=== PATIENT | female | born 1995 | race Caucasian/White ===

== ENCOUNTER 2020-01-17 23:07 | Emergency (ER) | payer OTHER ==
[~2020-01-17] VITALS: Ht 170.2 cm; Wt 141.0 kg
--- NOTE | 2020-01-18 00:04 | PHYS DOC ---
General Adult EDM: Chief Complaint: VAGINAL BLEEDING HPI: HPI: Patient is a 24-year-old female who is G3A1P1 presented with pelvic cramping and vaginal spotting since yesterday. Her last menstrual period on December 06, 2019. Patient did home test and came back positive. She claimed that she has been spotting off an on since yesterday associated with some cramping, NO ACTIVE BLEEDING TO DAY. Review of Systems: Review of Systems: Constitutional: Denies fever or chills Eyes: Denies change in visual acuity HENT: Denies nasal congestion or sore throat Respiratory: Denies cough or shortness of breath Cardiovascular: Denies chest pain or edema GI: Denies abdominal pain, nausea, vomiting, bloody stools or diarrhea : Denies dysuria Musculoskeletal: Denies back pain or joint pain Integument: Denies rash Neurologic: Denies headache, focal weakness or sensory changes Endocrine: Denies polyuria or polydipsia Lymphatic: Denies swollen glands Psychiatric: Denies depression or anxiety Heart Score: Risk Factors: Risk Factors: DM, Current or recent (<one month) smoker, HTN, HLP, family history of CAD, obesity. Risk Scores: Score 0 - 3: 2.5% MACE over next 6 weeks - Discharge Home Score 4 - 6: 20.3% MACE over next 6 weeks - Admit for Clinical Observation Score 7 - 10: 72.7% MACE over next 6 weeks - Early Invasive Strategies Physical Exam: PE: Constitutional: Well developed, well nourished, no acute distress, non-toxic appearance. [] HENT: Normocephalic, atraumatic, bilateral external ears normal, oropharynx moist, no oral exudates, nose normal. [] Eyes: PERRLA, EOMI, conjunctiva normal, no discharge. [] Neck: Normal range of motion, no tenderness, supple, no stridor. [] Cardiovascular:Heart rate regular rhythm, no murmur [] Lungs & Thorax: Bilateral breath sounds clear to auscultation [] Abdomen: Bowel sounds normal, soft, no tenderness, no masses, no pulsatile masses. [] Skin: Warm, dry, no erythema, no rash. [] Back: No tenderness, no CVA tenderness. [] Extremities: No tenderness, no cyanosis, no clubbing, ROM intact, no edema. [] Neurologic: Alert and oriented X 3, normal motor function, normal sensory function, no focal deficits noted. [] Psychologic: Affect normal, judgement normal, mood normal. [] Current Patient Data: Labs: Laboratory Tests Test 01/17/20 23:56 POC Urine HCG, Qualitative hcg positive (Negative) EKG: EKG: [] Radiology/Procedures: Radiology/Procedures: [][place] [id number] IMAGING REPORT Signed PATIENT: JANAY DELANEY ACCOUNT: [id number] : 1995 LOCATION: ER AGE: 24 SEX: F EXAM STATUS: REG ER ORD. PHYSICIAN: YAA MANN DO REASON: , pelvic pain, vaginal bleeding, LMP 12/06/19 PROCEDURE: TRANSVAGINAL Obstetric ultrasound less than 14 weeks: Reason for examination: with pelvic pain and vaginal bleeding. Last menstrual period 12/06/2019. Transvaginal ultrasound examination of the pelvis was performed. Uterus measures 7.7 x 4.1 x 3.6 cm in greatest dimension without a focal lesion seen. A small nabothian cyst is seen in the cervix measuring 4.2 mm in size. Endometrium is not abnormally thickened at 6.8 mm. There is no evidence of intrauterine or ectopic gestation. The right ovary measures 3.3 x 2.0 x 1.9 cm in greatest dimension and shows normal vascular flow. The left ovary measures 3.5 x 2.6 x 2.2 cm in greatest dimension and shows normal vascular flow. There is however a 2.7 x 2.1 cm left ovarian cyst present. There is a trace of fluid in the cervix. IMPRESSION: No evidence of intrauterine or ectopic gestation. 2.7 cm cyst in the left ovary. Electronically signed by: Santa Hernandez MD (01/18/2020 1:40 AM) [facility] DICTATED AND SIGNED BY: SANTA HERNANDEZ MD DATE: 01/18/20139 CC: PCP,UNKNOWN; YAA MANN DO ~ Course & Med Decision Making: Course & Med Decision Making Pertinent Labs and Imaging studies reviewed. (See chart for details) Patient pulled up her medical record from [facility] and her blood type is A POSITIVE. Patient already saw the result of her pelvic ultrasound so she declined blood work at this time. She will follow up with her OB.PROPERTY INSURANCE AGENT DOCTOR THIS WEEK. Milagro Disclaimer: Milagro Disclaimer: This electronic medical record was generated, in whole or in part, using a voice recognition dictation system. Departure Departure: Impression: Primary Impression: Threatened in first trimester Disposition: HOME/RESIDENCE PRIOR TO ADM Condition: STABLE Referrals: PCP,UNKNOWN (PCP) PLEASE FOLLOW UP WITH YOUR SOFTWARE LEAD DOCTOR THIS WEEK FOR REEVALUATION. Patient Instructions: Threatened Miscarriage Additional Instructions: Thank you for visiting our Emergency Department. We appreciate you trusting us with your care. If any additional problems come up don't hesitate to return to visit us. Please follow up with your primary care provider so they can plan additional care if needed and know about the problem that you had. If symptoms worsen come back to the Emergency Department. Any concerning symptoms that start such as chest pain, shortness of air, weakness or numbness on one side of the body, running high fevers or any other concerning symptoms return to the ER. Justification of Admission: Justification of Admission: Justification of Admission Dx: N/A YAA MANN DO Jan 18, 2020 00:04
[2020-01-18 01:12] LABS: BACTERIA,URINE FEW /HPF (0-FEW); BILIRUBIN,URINE NEG (NEG); CLARITY,URINE HAZY; COLOR,URINE YELLOW; GLUCOSE,URINE NEG (NEG); NITRITE,URINE NEG (NEG); RBC,URINE >40 /HPF (0-2); UROBILINOGEN,URINE 0.2 mg/dL (0.2 mg/dL)
[2020-01-18 01:13] LABS: SQUAMOUS EPITHELIAL CELL,UR FEW /LPF
[2020-01-18 01:18] VITALS: BP 131/88
--- NOTE | 2020-01-18 01:43 | RAD ---
Obstetric ultrasound less than 14 weeks: Reason for examination: with pelvic pain and vaginal bleeding. Last menstrual period 12/06/2019. Transvaginal ultrasound examination of the pelvis was performed. Uterus measures 7.7 x 4.1 x 3.6 cm in greatest dimension without a focal lesion seen. A small nabothian cyst is seen in the cervix measuring 4.2 mm in size. Endometrium is not abnormally thickened at 6.8 mm. There is no evidence of intrauterine or ectopic gestation. The right ovary measures 3.3 x 2.0 x 1.9 cm in greatest dimension and shows normal vascular flow. The left ovary measures 3.5 x 2.6 x 2.2 cm in greatest dimension and shows normal vascular flow. There is however a 2.7 x 2.1 cm left ovarian cyst present. There is a trace of fluid in the cervix. IMPRESSION: No evidence of intrauterine or ectopic gestation. 2.7 cm cyst in the left ovary. Electronically signed by: Santa Hernandez MD (01/18/2020 1:40 AM) [facility]
== END 2020-01-18 01:30 | disposition home or self-care (01) ==
LOC: ER 23:07
DX: O20.0 Threatened abortion (principal); Z3A.01 Less than 8 weeks gestation of pregnancy
CPT/HCPCS: 76817; 81001; 81025; 87086; 99284

== ENCOUNTER 2020-02-03 13:02 | Emergency (ER) | payer OTHER ==
[~2020-02-03] VITALS: Ht 170.2 cm; Wt 141.0 kg
--- NOTE | 2020-02-03 13:36 | EKG ---
[address] [address] Test Date: 2020-02-03 Test Time: 13:19:58 Pat Name: JANAY DELANEY Department: Room: Gender: F [employer] Consultant: : 1995 Requested By: CHILO LAY Order Number: [id number] Reading MD: Measurements Intervals [place] Rate: 89 P: 47 [place]: 168 QRS: 34 QRSD: 80 T: 35 QT: 338 QTc: 412 Interpretive Statements SINUS RHYTHM R-S TRANSITION ZONE IN V LEADS DISPLACED TO THE RIGHT OTHERWISE NORMAL ECG RI6.02 No previous ECG available for comparison
--- NOTE | 2020-02-03 13:43 | RAD ---
CHEST PA LATERAL History: Chest pain Comparison: None. Findings: 2 views of the chest are submitted. There is no lobar infiltrate, pneumothorax, or effusion. Pericardial cardiac silhouette is within normal limits in size. There may be due to degree of perihilar bronchial wall thickening. Impression: 1. There may be degree of perihilar bronchial wall thickening, no significant lobar infiltrate. Electronically signed by: Eleno Cazares MD (02/03/2020 1:41 PM) [facility]
[2020-02-03 13:45] VITALS: BP 131/88
--- NOTE | 2020-02-03 13:52 | PHYS DOC ---
Past History Past Medical History: No Pertinent History Past Surgical History: , Other Additional Past Surgical Histo: d&c Alcohol Use: None General Adult EDM: Chief Complaint: CHEST PAIN HPI: HPI: Patient is a [age] year old [sex] who presents with [] Review of Systems: Review of Systems: Constitutional: Denies fever or chills Eyes: Denies change in visual acuity HENT: Denies nasal congestion or sore throat Respiratory: Denies cough or shortness of breath Cardiovascular: Denies chest pain or edema GI: Denies abdominal pain, nausea, vomiting, bloody stools or diarrhea : Denies dysuria Musculoskeletal: Denies back pain or joint pain Integument: Denies rash Neurologic: Denies headache, focal weakness or sensory changes Endocrine: Denies polyuria or polydipsia Lymphatic: Denies swollen glands Psychiatric: Denies depression or anxiety Heart Score: Risk Factors: Risk Factors: DM, Current or recent (<one month) smoker, HTN, HLP, family history of CAD, obesity. Risk Scores: Score 0 - 3: 2.5% MACE over next 6 weeks - Discharge Home Score 4 - 6: 20.3% MACE over next 6 weeks - Admit for Clinical Observation Score 7 - 10: 72.7% MACE over next 6 weeks - Early Invasive Strategies Allergies: Allergies: Allergies Coded Allergies Type Severity Reaction Last Updated Verified No Known Drug Allergies 01/18/20 No Physical Exam: PE: Constitutional: Well developed, well nourished, no acute distress, non-toxic appearance. [] HENT: Normocephalic, atraumatic, bilateral external ears normal, oropharynx moist, no oral exudates, nose normal. [] Eyes: PERRLA, EOMI, conjunctiva normal, no discharge. [] Neck: Normal range of motion, no tenderness, supple, no stridor. [] Cardiovascular:Heart rate regular rhythm, no murmur [] Lungs & Thorax: Bilateral breath sounds clear to auscultation [] Abdomen: Bowel sounds normal, soft, no tenderness, no masses, no pulsatile masses. [] Skin: Warm, dry, no erythema, no rash. [] Back: No tenderness, no CVA tenderness. [] Extremities: No tenderness, no cyanosis, no clubbing, ROM intact, no edema. [] Neurologic: Alert and oriented X 3, normal motor function, normal sensory function, no focal deficits noted. [] Psychologic: Affect normal, judgement normal, mood normal. [] Current Patient Data: Vital Signs: Vital Signs Date Time Temp Pulse Resp B/P (MAP) Pulse Ox O2 Delivery O2 Flow Rate FiO2 02/03/20 13:45 97.9 113 24 131/88 (102) 94 EKG: EKG: @1319 NSR at 89bpm, NO ST elevation, QRS 80ms, QT/QTc 338/412ms Radiology/Procedures: Radiology/Procedures: PROCEDURE: CHEST PA & LATERAL CHEST PA LATERAL History: Chest pain Comparison: None. Findings: 2 views of the chest are submitted. There is no lobar infiltrate, pneumothorax, or effusion. Pericardial cardiac silhouette is within normal limits in size. There may be due to degree of perihilar bronchial wall thickening. Impression: 1. There may be degree of perihilar bronchial wall thickening, no significant lobar infiltrate. Electronically signed by: Eleno Cazares MD (02/03/2020 1:41 PM) [facility] Course & Med Decision Making: Course & Med Decision Making Pertinent Labs and Imaging studies reviewed. (See chart for details) [] Dragon Disclaimer: Dragon Disclaimer: This electronic medical record was generated, in whole or in part, using a voice recognition dictation system. Departure Departure: Impression: Primary Impression: Atypical chest pain Disposition: 01 DC HOME SELF CARE/HOMELESS Condition: STABLE Referrals: SKYLAR ANDERSON MD (PCP) Patient Instructions: Chest Pain (Nonspecific), Rrhj-[id number], Gastritis, Adult, Yoyy-jz-Rlhn Scripts Famotidine (PEPCID) 20 Mg Tablet 1 TAB PO BID for Gastritis, #20 TAB Prov: CHILO LAY DO 02/03/20 CHIOL LAY DO Feb 03, 2020 13:52
[2020-02-03] MEDS ORDERED: FAMO-63 PO (14:00)
== END 2020-02-03 14:06 | disposition home or self-care (01) ==
LOC: ER 13:02
DX: R07.2 Precordial pain (principal)
CPT/HCPCS: 71046; 93005; 99283

== ENCOUNTER 2020-05-04 22:23 | Emergency (ER) | payer OTHER ==
[~2020-05-04] VITALS: Ht 170.2 cm; Wt 145.0 kg
[~2020-05-04 22:23] MED LIST: FAMO-63 PO
--- NOTE | 2020-05-04 22:50 | PHYS DOC ---
Past History Past Medical History: Other Additional Past Medical Histor: BORDERLINE ANEMIA Past Surgical History: , Other Additional Past Surgical Histo: d&c Smoking: Non-smoker Alcohol Use: None Drug Use: None Adult General Chief Complaint Chief Complaint: NAUSEA/VOMITING/DIARRHEA [facility] Patient is an otherwise healthy 24-year-old female who presents with nausea and vomiting. States they were getting ready to go to sleep, and she went to go to the restroom before bed and had to large watery nonbloody diarrhea episodes. States she had very mild nausea with this and did not have any emesis. States this started just before coming to the ED. Denies any recent travel, illnesses, fevers, Covid/flu symptoms, chest pain, shortness of breath, abdominal pain, dys uria, hematuria or blood in the stool. States that since she had that second episode she is actually felt better. States that here in the ED, the nausea had almost resolved because she took a Dramamine at home. Review of Systems Review of Systems Review of systems otherwise normal outside of [facility] Allergies Allergies Allergies Coded Allergies Type Severity Reaction Last Updated Verified No Known Drug Allergies 01/18/20 No Physical Exam Physical Exam Constitutional: Well developed, well nourished, no acute distress, non-toxic appearance. [] HENT: Normocephalic, atraumatic, bilateral external ears normal, oropharynx moist, no oral exudates, nose normal. [] Eyes: PERRLA, EOMI, conjunctiva normal, no discharge. [] Neck: Normal range of motion, no tenderness, supple, no stridor. [] Cardiovascular: Intermittent tachycardia to approximately 105, but when patient calms down she is in the upper 80s and low 90s. Lungs & Thorax: Bilateral breath sounds clear to auscultation [] Abdomen: Bowel sounds normal, soft, no tenderness, no masses, no pulsatile masses. [] Skin: Warm, dry, no erythema, no rash with capillary refill approximately 3 seconds. [] Back: No tenderness, ] Extremities: No tenderness, no cyanosis, no clubbing, ROM intact, no edema. [] Neurologic: Alert and oriented X 3, normal motor function, normal sensory function, no focal deficits noted. [] Psychologic: Cooperative and pleasant but anxious Current Patient Data Vital Signs Vital Signs Date Time Temp Pulse Resp B/P (MAP) Pulse Ox O2 Delivery O2 Flow Rate FiO2 05/04/20 22:23 99.1 105 18 147/74 (98) 98 Room Air EKG EKG [] Radiology/Procedures Radiology/Procedures [] Heart Score Risk Factors: Risk Factors: DM, Current or recent (<one month) smoker, HTN, HLP, family history of CAD, obesity. Risk Scores: Risk Factors: DM, Current or recent (<one month) smoker, HTN, HLP, family history of CAD, obesity. Course & Med Decision Making Course & Med Decision Making Patient is a 24-year-old female who presents with 2 episodes of watery diarrhea and mild nausea Vital signs notable for tachycardia. Physical exam noted above. Patient given Zofran. Discussed the need for laboratory analysis and IV fluid. Patient stated that she was feeling much better and thinks that just the Zofran and the ability to drink plenty of fluids would be okay and politely declined any work- up. Did request a work note for her so he could stay home from work [employer], who works at the care home to help take care of the kids while she was not feeling well. Advised that a work-up would help ensure that she did not have anything else going on besides the diarrhea but since she was otherwise feeling well and felt safe to discharge home this would be okay. Advised to come back to the emergency department immediately with any new or concerning symptoms and follow-up with her primary care physician first thing in the morning to update on her ED visit. Patient was grateful, verbalized understanding and agreed with plan of discharge. [] Dragon Disclaimer Dragon Disclaimer This electronic medical record was generated, in whole or in part, using a voice recognition dictation system. Departure Departure: Impression: Primary Impression: Diarrhea Disposition: 01 DC HOME SELF CARE/HOMELESS Condition: IMPROVED Referrals: PCP,UNKNOWN (PCP) Patient Instructions: Diarrhea, Elcg-ev-Vurr, Nausea, Adult Scripts Ondansetron Hcl (ZOFRAN) 4 Mg Tablet 1 TAB PO PRN Q6HRS PRN for NAUSEA, #6 TAB Prov: NAHOMI VENTURA MD 05/04/20 NAHOMI VENTURA MD May 04, 2020 22:50
[2020-05-04] MEDS ORDERED: IV RINGERS SOLUTION,LACTATED 1,000 ML IV ONE (23:00)
[2020-05-04] MEDS ORDERED: ONDANSETRON ODT 4 MG TAB.RAPDIS PO ONE (23:00)
[2020-05-04 23:05] VITALS: BP 123/88
[2020-05-04] MEDS ORDERED: ONDA4TAB7 PO (23:22)
== END 2020-05-04 23:30 | disposition home or self-care (01) ==
LOC: ER 22:23
DX: R19.7 Diarrhea, unspecified (principal); R11.2 Nausea with vomiting, unspecified
CPT/HCPCS: 81025; 99283; Q0162

== ENCOUNTER 2020-05-09 21:06 | Emergency (ER) | payer OTHER ==
[~2020-05-09 21:06] MED LIST changes: +ONDA4TAB7 PO
[2020-05-09] MEDS ORDERED: ONDA4TAB12 PO (21:55)
--- NOTE | 2020-05-09 21:56 | PHYS DOC ---
Past History Past Medical History: Other Additional Past Medical Histor: BORDERLINE ANEMIA Past Surgical History: , Other Additional Past Surgical Histo: d&c Smoking: Non-smoker Alcohol Use: None Drug Use: None General Adult EDM: Chief Complaint: DIARRHEA HPI: HPI: Patient is a 24-year-old female who presents with nausea and diarrhea. Patient states that she was here 4 days ago for the same symptoms and now she is out of Zofran. Patient states that she has had issues with chronic nausea and diarrhea since she had her son 4 years ago. Patient states that she takes Zofran or Dramamine at home which usually received relieve symptoms. Patient denies fever, abdominal pain, blood in stool. Denies recent history of illness or antibiotics. Patient states that she will follow-up with her primary care tomorrow and get a referral for GI. Review of Systems: Review of Systems: Constitutional: Denies fever or chills Eyes: Denies change in visual acuity HENT: Denies nasal congestion or sore throat Respiratory: Denies cough or shortness of breath Cardiovascular: Denies chest pain or edema GI: Denies abdominal pain, reports nausea and diarrhea : Denies dysuria Musculoskeletal: Denies back pain or joint pain Integument: Denies rash Neurologic: Denies headache, focal weakness or sensory changes Endocrine: Denies polyuria or polydipsia Lymphatic: Denies swollen glands Psychiatric: Denies depression or anxiety Allergies: Allergies: Allergies Coded Allergies Type Severity Reaction Last Updated Verified No Known Drug Allergies 01/18/20 No Physical Exam: PE: Constitutional: Well developed, well nourished, no acute distress, non-toxic appearance. [] HENT: Normocephalic, atraumatic, bilateral external ears normal, oropharynx moist, no oral exudates, nose normal. [] Eyes: PERRLA, EOMI, conjunctiva normal, no discharge. [] Neck: Normal range of motion, no tenderness, supple, no stridor. [] Cardiovascular:Heart rate regular rhythm, no murmur [] Lungs & Thorax: Bilateral breath sounds clear to auscultation [] Abdomen: Bowel sounds normal, soft, no tenderness, no masses, no pulsatile masses. [] Skin: Warm, dry, no erythema, no rash. [] Back: No tenderness, no CVA tenderness. [] Extremities: No tenderness, no cyanosis, no clubbing, ROM intact, no edema. [] Neurologic: Alert and oriented X 3, normal motor function, normal sensory function, no focal deficits noted. [] Psychologic: Affect normal, judgement normal, mood normal. [] EKG: EKG: [] Radiology/Procedures: Radiology/Procedures: [] Heart Score: Risk Factors: Risk Factors: DM, Current or recent (<one month) smoker, HTN, HLP, family history of CAD, obesity. Risk Scores: Score 0 - 3: 2.5% MACE over next 6 weeks - Discharge Home Score 4 - 6: 20.3% MACE over next 6 weeks - Admit for Clinical Observation Score 7 - 10: 72.7% MACE over next 6 weeks - Early Invasive Strategies Course & Med Decision Making: Course & Med Decision Making Pertinent Labs and Imaging studies reviewed. (See chart for details) []Patient is a 24-year-old female who presents with nausea and diarrhea. Patient states that she was here 4 days ago for the same symptoms and now she is out of Zofran. Patient states that she has had issues with chronic nausea and diarrhea since she had her son 4 years ago. Patient states that she takes Zofran or Dramamine at home which usually received relieve symptoms. Patient denies fever, denies recent history of illness or antibiotics. Patient states that she will follow-up with her primary care tomorrow and get a referral for GI. Patient was seen here 4 days ago for same symptoms. Patient states that this has been going on since her son was born 4 years ago. Patient denies seeing a specialist or her primary care physician for this problem. Patient is able to eat and drink without vomiting. Patient is hemodynamically stable. Denies blood in her stool or abdominal pain. Zofran given in the emergency room and prescription given to patient. Patient is requesting a work note for her so that he can stay home tonight and take care of her. Informed patient that we will not be able to write work notes for her in the future without seeing him as a patient. Patient needs to follow-up with her primary care regarding this issue. This is a chronic problem that needs to be seen by a GI doctor. Milagro Disclaimer: Milagro Disclaimer: This electronic medical record was generated, in whole or in part, using a voice recognition dictation system. Departure Departure: Impression: Primary Impression: Nausea Disposition: 01 DC HOME SELF CARE/HOMELESS Condition: GOOD Referrals: PCP,UNKNOWN (PCP) Patient Instructions: Nausea, Adult, [id number] Additional Instructions: You are seen the emergency room tonight for nausea and diarrhea. I have given you a prescription for Zofran to take at home. Please follow-up with Shakira tomorrow so that you can get a referral for a GI consult. EMERGENCY DEPARTMENT GENERAL DISCHARGE INSTRUCTIONS Thank you for coming to [facility] (ED) today and trusting us with you care. We trust that you had a positivie experience in our Emergency Department. If you wish to speak to the department management, you may call the director at [phone]. YOUR FOLLOW UP INSTRUCTIONS ARE FOLLOWS: 1. Do you have a private Doctor? If you do not have a private doctor, please ask for a resource list of physicians or clinics that may be able to assist you with follow up care. 2. The Emergency Physician has interpreted your x-rays. The X-Ray specialist will also review them. If there is a change in the findings, you will be notified in 48 hours when at all possible. 3. A lab test or culture has been done, your results will be reviewed and you will be notified if you need a change in treatment. ADDITIONAL INSTRUCTIONS AND INFORMATION: 1. Your care today has been supervised by a physician who is specially trained in emergency care. Many problems require more than one evaluation for a complete diagnosis and treatment. We recommend that you schedule your follow up appointment as recommended to ensure complete treatment of you illness or injury. If you are unable to obtain follow up care and continue to have a problem, or if your condition worsens, we recommend that you return to the ED. 2. We are not able to safely determine your condition over the phone nor are we able to give sound medical advice over the phone. For these safety reasons, if you call for medical advice we will ask you to come to the ED for further evaluation. 3. If you have any questions regarding these discharge instructions please call the ED at [phone]. SAFETY INFORMATION: In the interest of safety, wellness, and injury prevention; we encourage you to wear your sealbelt, if you smoke; quite smoking, and we encourage family to use a protective helmet for bicycling and other sporting events that present an increased risk for head injury. IF YOUR SYMPTOMS WORSEN OR NEW SYMPTOMS DEVELOP, OR YOU HAVE CONCERNS ABOUT YOUR CONDITION; OR IF YOUR CONDITION WORSENS WHILE YOU ARE WAITING FOR YOUR FOLLOW UP APPOINTMENT; EITHER CONTACT YOUR PRIMARY CARE DOCTOR, THE PHYSICIAN WHOSE NAME AND NUMBER YOU WERE GIVEN, OR RETURN TO THE ED IMMEDIATELY. Scripts Ondansetron (ONDANSETRON ODT) 4 Mg Tab.rapdis 4 MG PO TID PRN for NAUSEA/VOMITING MDD 24mg for 3 Days, #9 TAB Prov: SHAYLA FRANK APRN 05/09/20 SHAYLA FRANK APRN May 09, 2020 21:56
[2020-05-09] MEDS ORDERED: ONDANSETRON ODT 4 MG TAB.RAPDIS PO ONE (22:00)
== END 2020-05-09 22:20 | disposition home or self-care (01) ==
LOC: ER 21:06
DX: R11.0 Nausea (principal); R19.7 Diarrhea, unspecified; Z86.2 Personal history of diseases of the blood and blood-forming organs and certain disorders involving the immune mechanism; Z98.890 Other specified postprocedural states
CPT/HCPCS: 81025; 99283; Q0162

== ENCOUNTER 2021-09-16 17:54 | Emergency (ER) | payer OTHER ==
[~2021-09-16] VITALS: Ht 170.2 cm; Wt 145.3 kg
[~2021-09-16 17:54] MED LIST changes: +ONDA4TAB12 PO
[2021-09-16 18:30] VITALS: BP 132/74
[2021-09-16 19:13] LABS: BACTERIA,URINE 0 /HPF (0-FEW); CLARITY,URINE CLEAR; COLOR,URINE YELLOW; GLUCOSE,URINE NEG (NEG); NITRITE,URINE NEG (NEG); RBC,URINE 0 /HPF (0-2); SQUAMOUS EPITHELIAL CELL,UR MANY /LPF; UROBILINOGEN,URINE 0.2 mg/dL (0.2 mg/dL); WBC,URINE 0 /HPF (0-4)
--- NOTE | 2021-09-16 20:03 | PHYS DOC ---
Past History Past Medical History: Other Additional Past Medical Histor: BORDERLINE ANEMIA (MIRNA ROWLEY APRN) Past Surgical History: , Other Additional Past Surgical Histo: D&C (MIRNA ROWLEY APRN) Smoking: Non-smoker Alcohol Use: None Drug Use: None (MIRNA ROWLEY APRN) Adult General Chief Complaint Chief Complaint: SHOULDER INJURY HPI HPI Patient is a 26 year old female patient who presents with left shoulder pain for the past couple days. states no history of trauma, States she feels she needs an MRI. Also reports she feels she might be but was not able to understand the test at home. SHe denies any paresthesia, denies any decreased ROM. STates she just woke this morning with the discomfort in her arm. She reports she has had discomfort from sleeping on her arm in the past, however reports she does not sleep on her left side. (MIRNA ROWLEY APRN) Review of Systems Review of Systems Constitutional: Denies fever or chills [] Respiratory: Denies cough or shortness of breath [] Cardiovascular: No additional information not addressed in HPI [] GI: Denies abdominal pain, nausea, vomiting, bloody stools or diarrhea [] : Denies dysuria or hematuria [] Musculoskeletal: Denies back pain. Reports left shoulder and upper arm pain Integument: Denies rash or skin lesions [] Neurologic: Denies headache, focal weakness or sensory changes [] All other systems were reviewed and found to be within normal limits, except as documented in this note. (MIRNA ROWLEY APRN) Allergies Allergies Allergies Coded Allergies Type Severity Reaction Last Updated Verified No Known Drug Allergies 01/18/20 No (MIRNA ROWLEY APRN) Physical Exam Physical Exam Constitutional: Well developed, well nourished, no acute distress, non-toxic appearance. [] HENT: Normocephalic, atraumatic, bilateral external ears normal, oropharynx moist, no oral exudates, nose normal. [] Eyes: PERRLA, EOMI, conjunctiva normal, no discharge. [] Neck: Normal range of motion, no tenderness, supple, no stridor. [] Cardiovascular:Heart rate regular rhythm, no murmur [] Lungs & Thorax: Bilateral breath sounds clear to auscultation [] Abdomen: Bowel sounds normal, soft, no tenderness, no masses, no pulsatile masses. [] Skin: Warm, dry, no erythema, no rash. [] Back: No tenderness, no CVA tenderness. [] Extremities: No tenderness, no cyanosis, no clubbing, ROM intact, no edema. [] Full ROM, sensation intact to left upper extremity, brisk capillary refill, neurovascular intact. Neurologic: Alert and oriented X 3, normal motor function, normal sensory function, no focal deficits noted. [] Psychologic: Affect normal, judgement normal, mood normal. [] (MIRNA ROWLEY APRN) Current Patient Data Vital Signs Vital Signs Date Time Temp Pulse Resp B/P (MAP) Pulse Ox O2 Delivery O2 Flow Rate FiO2 09/16/21 18:30 98.8 111 20 132/74 (93) 96 Room Air Lab Results Laboratory Tests Test 09/16/21 17:58 09/16/21 18:42 POC Urine HCG, Qualitative hcg negative (Negative) Urine Collection Type Clean catch Urine Color Yellow Urine Clarity Clear Urine pH 5.5 Urine Specific [place] >=1.030 Urine Protein Neg (NEG-TRACE) Urine Glucose (UA) Neg mg/dL (NEG) Urine Ketones (Stick) Neg mg/dL (NEG) Urine Blood Neg (NEG) Urine Nitrite Neg (NEG) Urine Bilirubin Neg (NEG) Urine Urobilinogen Dipstick 0.2 mg/dL (0.2 mg/dL) Urine Leukocyte Esterase Neg (NEG) Urine RBC 0 /HPF (0-2) Urine WBC 0 /HPF (0-4) Urine Squamous Epithelial Cells Many /LPF Urine Bacteria 0 /HPF (0-FEW) (MIRNA ROWLEY APRN) EKG EKG [] (MIRNA ROWLEY APRN) Radiology/Procedures Radiology/Procedures [] Impressions: XR SHOULDER_LEFT 2+ VIEWS History: Reason: pain / Spl. Instructions: / History: Technique: 3 views left shoulder Comparison: None. Findings: No dislocation. No acute fracture. Impression: 1. No acute osseous abnormality. Electronically signed by: Urmila Kelly DO (09/16/2021 8:00 PM) [facility] DICTATED AND SIGNED BY: URMILA KELLY DO DATE: 09/16/211958 CC: NAHOMI VENTURA MD; PCP,UNKNOWN ~ (MIRNA ROWLEY APRN) Heart Score C/O Chest Pain: N/A Risk Factors: Risk Factors: DM, Current or recent (<one month) smoker, HTN, HLP, family histo ry of CAD, obesity. Risk Scores: Risk Factors: DM, Current or recent (<one month) smoker, HTN, HLP, family history of CAD, obesity. (MIRNA ROWLEY APRN) Course & Med Decision Making Course & Med Decision Making Pertinent Labs and Imaging studies reviewed. (See chart for details) []Patient presenting for non -traumatic left shoulder pain without decreased ROM. Concerned over status as well. She has not taken anything for the discomfort. Will evaluate status prior to imaging of shoulder. Negative test today, Imaging of shoulder without acute abnormalities. Discussed with patient importance of follow up with PCP, use Ice/Tylenol/Ibuprofen for inflammation and discomfort. She is agreeable with plan of care WIll provide dose of pain medication prior to discharge (MIRNA ROWLEY APRN) Course & Med Decision Making Did not see or evaluate patient. I discussed patient with WOUND/OSTOMY CLINICAL NURSE SPECIALIST. Generally agree with WOUND/OSTOMY CLINICAL NURSE SPECIALIST's work-up and disposition per note (NAHOMI VENTURA MD) Dragon Disclaimer Dragon Disclaimer This electronic medical record was generated, in whole or in part, using a voice recognition dictation system. (MIRNA ROWLEY APRN) Departure Departure: Impression: Primary Impression: Shoulder pain Disposition: HOME / SELF CARE / HOMELESS Condition: GOOD Referrals: PCP,UNKNOWN (PCP) Patient Instructions: Shoulder Pain Additional Instructions: Take Tylenol or Ibuprofen as needed for your shoulder discomfort FOllow up with your primary care provider to further evaluate and manage your shoulder discomfort, If they feel further imaging is needed, they can order it and follow up on the results. Problem Qualifiers Primary Impression: Shoulder pain Chronicity: acute Laterality: left Qualified Codes: M25.512 - Pain in left shoulder MIRNA ROWLEY APRN September 16, 2021 20:03 NAHOMI VENTURA MD September 16, 2021 22:47
[2021-09-16] MEDS ORDERED: ONDANSETRON ODT 4 MG TAB.RAPDIS PO ONE (20:15)
[2021-09-16] MEDS ORDERED: oxyCODONE/APAP 5/325 1 TAB TABLET PO ONE (20:30)
== END 2021-09-16 20:11 | disposition home or self-care (01) ==
LOC: ER 17:54
DX: M25.512 Pain in left shoulder (principal); M79.622 Pain in left upper arm
CPT/HCPCS: 73030; 81001; 81025; 93005; 99285